=== PATIENT | female | born 1960 | race Asian ===

== ENCOUNTER → 2019-09-14 10:40 | Outpatient (CLI) | payer OTHER, SELFPAY ==
[2019-09-15 10:55] LABS: COVID19 Sendout NOT DETECTED (Not Detect)
== END ==
PROVIDERS: PCP Physician Assistant Medical; Visit Provider Nurse Practitioner
DX: Z01.812 Encounter for preprocedural laboratory examination (principal)
CPT/HCPCS: 87635

== ENCOUNTER 2019-09-17 06:36 | Day surgery (SDC) | payer OTHER, SELFPAY ==
[2019-09-17 07:17] VITALS: BP 126/81; PULSE 70; RESP 16; TEMP 36.2; O2SAT 99; BMI 21.0
[2019-09-17] MEDS: SODIUM CHLORIDE 0.9% 1,000 ML 200 ML IV (07:20)
--- NOTE | 2019-09-17 07:38 | PM.HP.1 ---
History of Present Illness History of Present Illness Date Patient Seen: 09/17/19 Time Patient Seen: 07:38 Chief complaint: [id number] Narrative: This is a 59-year-old woman with personal history of colon polyps, and family history of colon cancer. Her last colonoscopy was in 2013, and she was recommended to have a repeat colonoscopy in 5 years. She denies any melena hematochezia unexplained abdominal pain or unexplained weight loss. ROS Thirteen system review is otherwise negative other than as mentioned below and in HPI. PE: GENERAL: Well groomed and cooperative. Appears stated age. Answers questions promptly and appropriately. Vital signs noted. HENT: Normocephalic, atraumatic. Hearing intact. Oral mucosa is pink and moist. EYES: Conjunctiva pink, sclera white, no periorbital swelling. CARDIOVASCULAR: Regular rate. No pedal edema. RESPIRATORY: Non-tachypneic, breathing comfortably on room air. GASTROINTESTINAL: Abdomen soft and non-distended GENITALURINARY: No flank tenderness. MUSCULOSKELETAL: Equal tone and mass bilaterally. SKIN: Warm, dry, soft, appropriate color for ethnicity. No other lesions, rashes, or wounds. NEURO: Alert and Oriented X 3. No gross sensory deficits, or cognitive issues. PSYCH: Appropriate affect and mood. Patient History Family & Social History Social History: household members spouse Tobacco & Substance use: Tobacco type cigarettes Smoking Status Former smoker Smoking packs per day 1 alcohol intake current alcohol intake frequency a few times a week Substance Use Type does not use Meds Home Medications and Allergies Home Medications Medication Instructions Recorded Confirmed Type [probiotics] #0 05/20/17 History zolpidem #0 05/20/17 History Allergies Allergy/AdvReac Type Severity Reaction Status Date / Time codeine [CODEINE] Allergy Severe hives Verified 09/17/19 07:34 nitrofurantoin Allergy Severe really Verified 09/17/19 07:34 [From MACRODANTIN] high fever Penicillins [PENICILLINS] Allergy Severe hives Verified 09/17/19 07:34 cobalt [COBALT] Allergy Unknown causes Verified 09/17/19 07:34 skin to blister and ooze carba mix Allergy Unknown Uncoded 09/17/19 07:34 Exam Vital Signs (past 8 hours): - 09/17/19 07:17 Temperature 97.2 F L Pulse Rate 70 Respiratory Rate 16 Blood Pressure 126/81 Pulse Oximetry 99 Oxygen Delivery Method Room Air Assessment & Plan Assessment and plan (1) Personal history of colonic polyps: Status: Acute (2) Tubular adenoma of colon: Status: Acute (3) Family history of colon cancer: Status: Acute Assessment & Plan narrative: Risks and benefits of screening colonoscopy and possible polypectomy were discussed with the patient including risk of bleeding, perforation, need for additional procedures, risks of anesthesia. The patient desires to proceed with the colonoscopy procedure. COVID-19 COVID-19 status: Negative Result date/Date tested (Pos, Neg/Pending): 09/14/19 Time Spent With Patient Time with patient: 15-24 minutes
--- NOTE | 2019-09-17 07:46 | PM.OP.ENDO ---
Operative Date/Time/Diagnoses Date of procedure: 09/17/19 Time of procedure: 07:46 Pre-op diagnosis: Personal history of colon polyps, tubular adenoma, family history of colon cancer Procedure & Clinicians Study performed: Surveillance colonoscopy for personal history of tubular adenoma and high risk family history Indications: This is a 59-year-old woman who had a colonoscopy in 2013, she is here for 5 year follow-up because of personal history of colon polyps and family history of colon cancer. Surgeon: Melissa Meredith Procedure Notes SCOAP/Timeout: Performed Procedure in detail: The patient was brought to the room and placed in left lateral decubitus position with all bony prominences padded. A time-out was performed and then the patient was given procedural sedation starting with 2 mg of Versed and [100] mcg of fentanyl. A total of 3mg of versed and 150 mcg of fentanyl was given for the entire procedure. Vitals were monitored throughout the procedure and remained stable. Once adequately sedated, the procedure was begun. A rectal exam was performed revealing [no abnormalities]. The colonoscope was then introduced to the rectum and advanced to the cecum in the usual fashion. []The cecum was identified by the appendiceal orifice, the mucosal tri-fold, and the ileocecal valve. The scope was then retracted while rotating side to side and examining each mucosal fold. [] At the conclusion of the procedure retroflexion was performed and [small grade 1-2 internal hemorrhoids without stigmata of bleeding were seen]. The scope was then withdrawn from the rectum the procedure was concluded. The patient tolerated the procedure well and was transferred to the PACU in stable condition. Scope withdrawal time: 8 Sedation minutes: 18 Specimen(s): none sent Complications: none Impression: Normal colon Post-procedure Recommendations: Colonscopy in 5 years (due to high risk family history) Follow up: as needed Disposition: PACU
[2019-09-17] MEDS: MIDAZOLAM 5 MG/5 ML VIAL IV (08:03)
[2019-09-17] MEDS: fentaNYL 250 MCG/5 ML INJ IV (08:04)
[2019-09-17 08:10] VITALS: BP 108/69; PULSE 80; RESP 21; TEMP 36.4; O2SAT 94
[2019-09-17 08:15] VITALS: BP 103/62; PULSE 71; RESP 10; O2SAT 95
[2019-09-17 08:20] VITALS: BP 108/61; PULSE 65; RESP 9; O2SAT 95
[2019-09-17 08:24] VITALS: BP 107/65; PULSE 61; RESP 12; O2SAT 95
[2019-09-17 08:29] VITALS: BP 106/62; PULSE 57; RESP 11; O2SAT 96
== END 2019-09-17 08:56 | disposition home or self-care (01) ==
PROVIDERS: PCP Physician Assistant Medical; Referring Provider Surgery; Visit Provider Surgery
PROC: 0DJD8ZZ Inspection of Lower Intestinal Tract, Via Natural or Artificial Opening Endoscopic (ICD-10-PCS; CPT 45378; principal; 2019-09-17 07:45)
DX: Z12.11 Encounter for screening for malignant neoplasm of colon (principal); Z86.010 Personal history of colon polyps; Z80.0 Family history of malignant neoplasm of digestive organs; K64.0 First degree hemorrhoids
CPT/HCPCS: 45378; 99152; J2250; J3010

== ENCOUNTER → 2019-11-11 13:23 | Outpatient (CLI) | payer OTHER, SELFPAY ==
[2019-11-12 13:50] LABS: COVID19 Sendout Not Detected (Not Detect)
== END ==
PROVIDERS: PCP Physician Assistant Medical; Visit Provider Physician Assistant
DX: Z11.59 Encounter for screening for other viral diseases (principal)
CPT/HCPCS: 87635

== ENCOUNTER → 2021-09-13 08:53 | Outpatient (CLI) | payer OTHER, SELFPAY ==
--- NOTE | 2021-09-13 | DI.ECHO.S_ITS ---
[facility]---------+ [facility] +---------+ : : [address] : [place] : : : : [id number] : : : : Phone: [phone]---------+ Echocardiogram Report + + :Name: KAMILLA COSTA Study Date: 09/13/2021 Height: 62 in : :[facility] ReadingLocation: Weight: 115 lb : : Gender: Female BSA: 1.5 m2 : :: 1960 Age: 61 yrs BP: 116/83 mmHg: :Reason For Study: NICOTINE DEPENDENCE : :Ordering Physician: CHRISTOPHER, : :YUNIER Performed By: Ann Camarillo : :Referring: YUNIER WHITE : + + Interpretation Summary The left ventricle is normal in size and wall thickness. The ejection fraction is estimated to be 50-55%. During PVCs significant LV dyssynchrony seen. The right ventricle is normal in size and function. There is mild mitral regurgitation. The IVC is of normal diameter and collapses greater than 50% with a sniff. This suggests a low right atrial pressure of 3 mm Hg. Liver Cysts visualized in subcostal window. Procedure: A two-dimensional transthoracic echocardiogram with color flow and Doppler was performed. The study quality was technically adequate. There is no prior echocardiogram noted for this patient. Patient refused Definity at this time, states she has frequent adverse reactions to medications and wants her to be in town if it is needed. The patient had frequent PVCs during the exam. Segments of Bigeminy noted. The heart rate ranged between 53- 74 bpm during the study. The patient was in normal sinus rhythm during the exam. Left Ventricle: The left ventricle is normal in size and wall thickness. A false chord is noted (normal variant). There is no thrombus. The ejection fraction is estimated to be 50-55%. There are no focal wall motion abnormalities. During PVCs significant LV dyssynchrony seen. Diastolic parameters suggest a relaxation abnormality of the left ventricle, consistent with probable normal filling pressures. Right Ventricle: The right ventricle is normal in size and function. Atria: The left atrial size is normal. Right atrial size is normal. There is no Doppler evidence for an interatrial shunt. Mitral Valve: There is a flat closure plane of the the mitral valve leaflets. No significant mitral valve prolapse. There is mild mitral regurgitation. Aortic Valve: The aortic valve is trileaflet. The aortic valve opens well. There is no aortic valve stenosis. No aortic regurgitation is present. Tricuspid Valve: The tricuspid valve is normal. There is mild tricuspid regurgitation. Pulmonary artery pressures cannot be estimated because of the lack of a measurable TR jet velocity. Pulmonic Valve: The pulmonic valve is not well seen, but is grossly normal. There is mild pulmonic regurgitation. Great Vessels: The aortic root is normal size. The dimensions of the ascending aorta are normal. The IVC is of normal diameter and collapses greater than 50% with a sniff. This suggests a low right atrial pressure of 3 mm Hg. Pericardium/ Pleura There is no pericardial effusion. There is no pleural effusion. MMode/2D Measurements & Calculations LVIDd: 4.5 cm LVOT diam: 1.8 cm LVIDs: 3.6 cm Ao root diam: 3.0 cm FS: 20.3 % asc Aorta Diam: 2.8 cm IVSd: 0.55 cm Ao Arch Diam (Prox Trans): 2.6 cm LVPWd: 0.68 cm LV daniels. diameter/BSA (cm/m^2): 3.0 LV sys. diameter/BSA (cm/m^2): 2.4 LA A2 area: 11.7 cm2 RA long axis: 3.5 cm LA A4 area: 9.3 cm2 RA area: 9.6 cm2 LA length (vol): 3.8 cm RA vol: 22.8 ml LA vol: 24.3 ml RA : 15.1 ml/m2 LA vol index: 16.1 ml/m2 IVC diam: 2.0 cm RVD1 (basal): 2.9 cm RVD2 (mid): 2.3 cm TAPSE: 2.1 cm Doppler Measurements & Calculations Ao V2 max: 111.7 cm/sec LVOT Max Reuben: 71.3 cm/sec Ao V2 mean: 85.1 cm/sec LV V1 max P.0 mmHg Ao max P.0 mmHg LV V1 VTI: 15.9 cm Ao mean P.1 mmHg TACHO(I,D): 1.7 cm2 Ao V2 VTI: 24.6 cm TACHO(V,D): 1.6 cm2 sev ratio: 0.65 TACHO indexed to BSA (cm^2/m^2): 1.1 MV E max reuben: 88.2 cm/sec PA V2 max: 72.3 cm/sec MV A max reuben: 102.5 cm/sec PA V2 mean: 52.1 cm/sec MV E/A: 0.86 PA mean P.2 mmHg Med Peak E' Reuben: 7.5 cm/sec PA pr(Accel): 0.22 mmHg E/E' med: 11.8 Lat Peak E' Reuben: 6.1 cm/sec E/E' lat: 14.5 E/e' average: 13.1 MV dec time: 0.26 sec SV(LVOT): 40.7 ml Reading Physician:12:10 PM
== END ==
PROVIDERS: PCP Physician Assistant Medical; Referring Provider Physician Assistant Medical; Visit Provider Physician Assistant Medical
DX: I08.1 Rheumatic disorders of both mitral and tricuspid valves (principal); F17.200 Nicotine dependence, unspecified, uncomplicated
CPT/HCPCS: 93306

== ENCOUNTER → 2024-01-06 13:51 | Outpatient (CLI) | payer MEDICARE, OTHER, SELFPAY ==
--- NOTE | 2024-01-06 13:52 | DI.CT.S_ITS ---
PROCEDURE: CT LUNG LOW DOSE SCREENING INDICATIONS: screening, smoker 35+yrs, last imaging done July 2022 TECHNIQUE: Noncontrast 2.0-2.5 mm thick sections acquired from the pulmonary apices to the posterior costophrenic angles. 7 mm thick axial MIP, and 5 mm coronal and sagittal reformats were then acquired. For radiation dose reduction, the following was used: automated exposure control, adjustment of mA and/or kV according to patient size. COMPARISON: None. FINDINGS: Image quality: Diagnostic. Lower Neck: No enlarged lymph nodes. Thyroid: No thyroid nodules which require sonographic follow up, per consensus guidelines. Axillae: No enlarged lymph nodes. Chest Wall: Unremarkable. Bones: No suspicious osseous lesion. Lungs and Pleura: No pneumothorax or pleural effusions. No consolidation or suspicious nodules. Mild emphysematous change. Central airways are clear. Heart: Heart size is normal. Mild coronary artery calcifications. No pericardial effusion. Thoracic Vessels: The aorta and pulmonary arteries demonstrate normal size. Mediastinum and Matilde: No enlarged lymph nodes. Esophagus: No wall thickening. No hiatal hernia. Upper Abdomen: Visualized upper abdomen solid organs and bowel loops appear normal. A few cysts in the left liver seen. Largest cyst measuring 6.9 cm. IMPRESSION: No suspicious pulmonary nodules. LUNG-RADS 1; continued annual screening, if eligible. Clinically Significant Non-pulmonary Findings: None. Dictated by: Hernan Kong M.D. on 01/07/2024 at 8:30 Approved by: Hernan Kong M.D. on 01/07/2024 at 8:35
--- NOTE | 2024-01-06 13:52 | DI.MG.S_ITS ---
BILATERAL DIGITAL SCREENING MAMMOGRAM 3D/2D WITH CAD: 01/06/2024 CLINICAL: Routine screening. Family history of breast cancer. Comparison is made to exams dated: 01/07/2023 mammogram, 01/14/2022 mammogram, and 01/18/2021 mammogram - [facility]. The breasts are heterogeneously dense, which may obscure small masses (category c / 51-75% glandular tissue). Current study was also evaluated with a Computer Aided Detection (CAD) system. No significant masses, calcifications, or other findings are seen in either breast. There has been no significant interval change. IMPRESSION: NEGATIVE There is no mammographic evidence of malignancy. A 1 year screening mammogram is recommended. Based on the Tyrer Cuzick model (a risk assessment model) the patient's lifetime risk is 12.6% and her 10 year risk is 6.2%. According to the ACR, ACS, and NCCN guidelines, an annual breast MRI exam along with mammogram is recommended if the patient's lifetime risk is 20% or greater. This exam was interpreted at Station ID: [id number]. NOTE: For mammograms, a report in lay terms will be sent to the patient. Approximately 15% of breast malignancies will not be visualized mammographically. In the management of a palpable breast mass, a negative mammogram must not discourage biopsy of a clinically suspicious lesion. Electronically Signed By: Marce Rosen M.D., Ph.D. maribeth/ligia:01/14/2024 01:44:40 letter sent: Normal Exam ACR BI-RADS Category 1: Negative
== END ==
PROVIDERS: PCP Internal Medicine; Referring Provider Internal Medicine; Visit Provider Internal Medicine
DX: R92.333 Mammographic heterogeneous density, bilateral breasts (principal); Z12.2 Encounter for screening for malignant neoplasm of respiratory organs; Z12.31 Encounter for screening mammogram for malignant neoplasm of breast; I25.10 Atherosclerotic heart disease of native coronary artery without angina pectoris; I25.84 Coronary atherosclerosis due to calcified coronary lesion; Z87.891 Personal history of nicotine dependence
CPT/HCPCS: 71271; 77063; 77067

== ENCOUNTER → 2024-01-16 09:56 | Outpatient (CLI) | payer MEDICARE, OTHER, SELFPAY ==
--- NOTE | 2024-01-16 09:58 | DI.RAD.S_ITS ---
PROCEDURE: XR DEXA AXIAL SKELETON INDICATIONS: Osteoporosis screening COMPARISON: None. FINDINGS: Lumbar Spine: Bone mineral density 0.836 g/cm2, T score -1.9. Left Hip: Bone mineral density 0.698 g/cm2, T score -2.0. Left Femoral Neck: Bone mineral density 0.537 g/cm2, T score -2.8. Right Hip: Bone mineral density 0.794 g/cm2, T score -1.2. Right Femoral Neck: Bone mineral density 0.581 g/cm2, T score -2.4. Fracture Risk Calculation (when applicable): 10-year fracture risk of a major osteoporotic fracture 13 percent and of a hip fracture 3.4 percent. (T score greater or equal to -1.0 to: NORMAL) (T score from -1.1 to -2.4: OSTEOPENIA) (T score less than or equal to -2.5: OSTEOPOROSIS) IMPRESSION: Low bone mineral density (osteopenia) by WHO classification. Follow-up guidelines as follows: Osteoporosis: Consider a repeat DEXA and Vertebral Fracture Assessment (VFA) exam in 2 years or sooner if medically necessary, to reassess this patient's status. Osteopenia: Consider a repeat DEXA in 2-3 years to reassess this patient's status, or if there is a new clinical indication. Normal: Consider a repeat DEXA in 5 years or sooner, or if there is a new clinical indication. All treatment decisions require clinical judgment and consideration of individual patient factors, including patient preferences, comorbidities, previous drug use, risk factors not captured in the FRAX model (e.g., frailty, falls, vitamin D deficiency, increased bone turnover, interval significant decline in bone density ) and possible under- or over-estimation of fracture risk by FRAX. In addition, the NOF Guide recommends that FDA-approved medical therapies be considered in postmenopausal women and men age >= 50 years with a: * Hip or vertebral (clinical or morphometric) fracture * T-score of <=-2.5 at the spine or hip * Ten-year fracture probability by FRAX of >= 3% for hip fracture or >=20% for major osteoporotic fracture. People with diagnosed cases of osteoporosis or at high risk for fracture should have regular bone mineral density tests. For patients eligible for Medicare, routine testing is allowed once every 2 years. The testing frequency can be increased to one year for patients who have rapidly progressing disease, those who are receiving or discontinuing medical therapy to restore bone mass, or have additional risk factors. Dictated by: Gilbert Doran M.D. on 01/16/2024 at 12:48 Approved by: Gilbert Doran M.D. on 01/16/2024 at 12:49
== END ==
PROVIDERS: PCP Internal Medicine; Referring Provider Internal Medicine; Visit Provider Internal Medicine
DX: M85.89 Other specified disorders of bone density and structure, multiple sites (principal)
CPT/HCPCS: 77080

== ENCOUNTER → 2025-01-07 10:37 | Outpatient (CLI) | payer MEDICARE, OTHER, SELFPAY ==
--- NOTE | 2025-01-07 10:38 | DI.CT.S_ITS ---
PROCEDURE: CT LUNG LOW DOSE SCREENING INDICATIONS: 1 Year Follow Up TECHNIQUE: Noncontrast 2.0-2.5 mm thick sections acquired from the pulmonary apices to the posterior costophrenic angles. 7 mm thick axial MIP, and 5 mm coronal and sagittal reformats were then acquired. For radiation dose reduction, the following was used: automated exposure control, adjustment of mA and/or kV according to patient size. COMPARISON: [facility], CT, CT LUNG LOW DOSE SCREENING, 01/06/2024, 14:22. FINDINGS: Image quality: Diagnostic. Lower Neck: No enlarged lymph nodes. Thyroid: No thyroid nodules which require sonographic follow up, per consensus guidelines. Axillae: No enlarged lymph nodes. Chest Wall: Unremarkable. Bones: Unremarkable. Lungs and Pleura: No pneumothorax or pleural effusions. No consolidation or suspicious nodules. Heart: Heart size is normal. No pericardial effusion. Thoracic Vessels: The aorta and pulmonary arteries demonstrate normal size. Mediastinum and Matilde: No enlarged lymph nodes. Esophagus: No wall thickening. No hiatal hernia. Upper Abdomen: Visualized upper abdomen solid organs and bowel loops appear normal. IMPRESSION: No suspicious pulmonary nodules. LUNG-RADS 1; continued annual screening, if eligible. Clinically Significant Non-pulmonary Findings: None. Dictated by: Javier Gray M.D. on 01/07/2025 at 16:16 Approved by: Javier Gray M.D. on 01/07/2025 at 16:17
--- NOTE | 2025-01-07 10:38 | DI.MG.S_ITS ---
MM screening mammo BI: 01/07/2025. BI-RADS: 1 CLINICAL: 64-year old female for bilateral screening mammogram. Tyrer-Cuzick lifetime risk of 7.6%. No personal or first-degree family history of breast cancer. Current reported family history of breast cancer: maternal aunt. PRIOR EXAMS 01/06/2024, 01/07/2023, 01/14/2022, 01/18/2021. MAMMOGRAPHY TECHNIQUE: 2D and 3D (tomosynthesis) digital mammographic views obtained, with additional images as needed for full coverage. Current study was also evaluated with a Computer Aided Detection (CAD) system. DENSITY D. The breasts are extremely dense, which lowers the sensitivity of mammography. MAMMOGRAPHY FINDINGS Bilateral: No suspicious mass, asymmetry, microcalcification, or other abnormality seen. IMPRESSION: * No evidence of malignancy. RECOMMENDATIONS Bilateral * Annual screening mammography. OVERALL ASSESSMENT CATEGORY BI-RADS-1: Negative. The [employer] recommends annual screening mammography beginning at age 40 for women with average risk of breast cancer. ELECTRONICALLY SIGNED: Radha Martines M.D. on 01/09/2025 at 11:19:17 PM PT Interpreting Station ID: [id number]
== END ==
PROVIDERS: PCP Internal Medicine; Referring Provider Internal Medicine; Visit Provider Internal Medicine
DX: Z12.31 Encounter for screening mammogram for malignant neoplasm of breast (principal); Z87.891 Personal history of nicotine dependence; R92.30 Dense breasts, unspecified; Z80.3 Family history of malignant neoplasm of breast
CPT/HCPCS: 71271; 77063; 77067